=== PATIENT | female | born 1945 | race Caucasian/White ===

== ENCOUNTER 2016-11-08 05:20 | Inpatient (IN) | payer MEDICARE ==
[2016-11-06 09:58] LABS: HEMATOCRIT 47.3 % (36.0-48.0); HEMOGLOBIN 15.9 g/dL (12.0-16.0)
[2016-11-06 10:11] LABS: BUN (BLOOD UREA NITROGEN) 17 MG/DL (6-23); CHLORIDE, SERUM 101 MMOL/L (96-112); CREATININE 1.06 MG/DL (0.55-1.02); GFR AFRICAN AMERICAN 62 ML/MIN (>=60); GFR NON AFRICAN AMERICAN 53 ML/MIN (>=60); GLUCOSE, SERUM 157 MG/DL (60-99); POTASSIUM, SERUM 3.6 MMOL/L (3.5-5.3); SODIUM, SERUM 141 MMOL/L (135-148)
[2016-11-06 10:12] LABS: CALCIUM, SERUM 9.9 MG/DL (8.5-10.4); CO2 (CARBON DIOXIDE) 34 MMOL/L (24-34)
[~2016-11-08] VITALS: Ht 158.8 cm; Wt 81.9 kg
--- NOTE | ~2016-11-08 | PREOPHP ---
PreOp History and Physical [facility] [address] [place]. [address] NAME: RENEA STEVENSON : 47 STATUS : ADM IN PAT#: [id number] AGE: 71 ADM/REG DATE : 11/08/16 MR#: [id number] REPORT SERV DATE: 11/08/16 DICTATED BY: RAMIREZ FRAZIER DATE: 11/08/16 REPORT STATUS : Draft TRANSCRIBED BY: MODMariel DATE: 11/08/16 CHIEF COMPLAINT: Back pain, right hip and leg pain. HISTORY OF PRESENT ILLNESS: 71-year-old female, who has an x-ray evidence of a grade 1 spondylolisthesis at L4-5 and L5-S1. The patient has severe facet arthropathy, bilateral at L4-5 and L5-S1. MRI shows moderate spinal stenosis in the foraminal zone at L4-5 and L5-S1. We tried to treat this with conservative care and failed. The patient is now brought to surgery for a right-sided L4-5, L5-S1 hemilaminectomy, foraminotomy, and facetectomy with a transforaminal diskectomy and anterior interbody cage insertion, posterolateral interbody fusion with local bone graft and allograft, and posterior percutaneous Voyager instrumentation at L4-S1. Prior to surgery, risks, benefits, alternatives, and expectations were explained. Consent form has been signed. Please also note, because of the complexity of surgery, the need to identify correct level of surgery intraoperatively as well as desire to carry out the safest and most precise dissection, we feel intraoperative navigation will be mandatory. PAST MEDICAL HISTORY: Gastroesophageal reflux disease, hypercholesterolemia, depression, and hypertension. She also has osteoarthritis and porphyria. PAST SURGICAL HISTORY: Left total knee arthroplasty, left knee arthroscopy, cataract extraction, lens implants, appendectomy, colonoscopy, and hand surgery on the left. CURRENT MEDICATIONS: Atenolol, meloxicam, montelukast, Prilosec, red yeast, and spironolactone. ALLERGIES: ESTROGEN AND SULFA. SOCIAL HISTORY: She is retired. Former smoker, quit in 1967 with tobacco usage, does not use any alcohol. She is currently. FAMILY HISTORY: One son with a CVA and IN, hypertensive disorder. Mother had diabetes and at age 81. Mother also had rheumatoid arthritis. Her father had CVA and at age 84. He had an IN, diabetes mellitus, and hypertension. One brother with had a malignant cancer of unknown primary, at age 79. One daughter has COPD. REVIEW OF SYSTEMS: Otherwise negative. PHYSICAL EXAMINATION: VITAL SIGNS: 5 feet 3 inches, 160 pounds, and BMI of 28.3. GENERAL: She is alert, cooperative, well-oriented. Ambulates independently. HEENT: Grossly normal except her pupils have been altered prior to surgery. Extraocular muscles are intact. Oral exam is grossly normal. No thyromegaly is palpated. No carotid bruits are auscultated. LUNGS: Clear to auscultation. HEART: Rate is regular and rhythmic. PreOp History and Physical [address] [address] NAME: RENEA STEVENSON : 47 STATUS : ADM IN [facility]#: [id number] AGE: 71 ADM/REG DATE : 11/08/16 MR#: [id number] REPORT SERV DATE: 11/08/16 DICTATED BY: RAMIREZ FRAZIER DATE: 11/08/16 REPORT STATUS : Draft TRANSCRIBED BY: BLADE DATE: 11/08/16 ABDOMEN: Soft with good bowel sounds. No peritoneal signs are noted. MUSCULOSKELETAL: The spine itself has some mild flattening of the lumbar lordosis. There is limited range of motion, but she still can flex to 50 to 60 degrees, extends to 10 to 15 degrees. She has no abnormal pain behaviors. Jumana signs are negative. Fabere signs are negative. No pelvic obliquity or leg length discrepancies are noted. She has negative straight leg raising sign. Negative femoral nerve stretch test. Patella and Achilles reflexes are absent. Bilateral toes are downgoing. No ankle clonus found. There is no sensory deficit in either lower extremity. Orthopedically, she has no pain with moving the hips, knees, or ankles. There are pulses in all four extremities. No abnormal skin lesions found. ASSESSMENT AND RECOMMENDATIONS: As listed above. /BLADE Ramirez Frazier D.O. / [id number] CC: Pavel Ling
--- NOTE | ~2016-11-08 | OP ---
Record Of Operation [facility] [address] [place]. [address] NAME: RENEA STEVENSON : 47 STATUS : ADM IN PAT#: [id number] AGE: 71 ADM/REG DATE : 11/08/16 MR#: [id number] REPORT SERV DATE: 11/08/16 DICTATED BY: RAMIREZ FRAZIER DATE: 11/08/16 REPORT STATUS : Draft TRANSCRIBED BY: BLADE DATE: 11/08/16 DATE OF PROCEDURE: PREOPERATIVE DIAGNOSIS: Grade 1 spondylolisthesis and spinal stenosis at L4-5 and L5-S1. POSTOPERATIVE DIAGNOSIS: Grade 1 spondylolisthesis and spinal stenosis at L4-5 and L5-S1. PROCEDURE: 1. Microscopic and navigation-assisted surgery. 2. Right L4-5 and L5-S1 hemilaminectomy, foraminotomy, facetectomy, transforaminal diskectomy, anterior interbody cage insertion, posterolateral interbody fusion with local bone graft and allograft, and posterior percutaneous Voyager instrumentation at L4-S1. [address] [address] SERVICE: Adiel Lacy. ANESTHESIA: General. BLOOD LOSS: 125 mL. INDICATION FOR SURGERY: Indications for surgery and risks have been explained. They are listed in last office note as well as the history and physical. See that for detail. DESCRIPTION OF PROCEDURE: Antibiotic prophylaxis was given. Neurophysiology monitoring leads were inserted. The patient was brought to the operative suite. General anesthetic including endotracheal intubation was administered. Ulrich catheter was placed with sterile technique. The patient was placed prone on a Faisal spine frame. Bony prominences were carefully padded. Thoracolumbar spine scrubbed with Hibiclens solution. DuraPrep was painted. Sterile drapes applied. A small stab wound was carried out over the left posterior-superior iliac spine. A percutaneous pin with navigational frame attached was inserted in the PSIS. Intraoperative CT scan with O-arm obtained, CT information was used to register the navigational system. With navigational assistance, I identified initially the L4-5 and L5-S1 on the right. Just lateral to the facet joints, approximately a 5-6 cm skin incision was carried out. Initially, I used the inferior portion of the skin incision. I placed a blunt navigated probe through the fascia and muscle and docked over the facet joint of L5-S1. Muscle dilators were inserted followed by placement of a tubular retractor attached to an arm mount on the table. The microscope was sterilely draped and used throughout the remainder of the procedure. With navigational assistance, again I identified the top of the pedicle of S1 and the inferior pedicle of L5. I used a combination of a cutting bur, 2 and 3 mm juan bur as well as 2 and 3 mm Kerrison rongeurs. I removed the entire superior articular process of S1 down to the top of the pedicle. I removed the inferior articular process of L5, the lamina Record Of Operation [facility] [address] [place]. [address] NAME: RENEA STEVENSON : 47 STATUS : ADM IN PAT#: [id number] AGE: 71 ADM/REG DATE : 11/08/16 MR#: [id number] REPORT SERV DATE: 11/08/16 DICTATED BY: RAMIREZ FRAZIER DATE: 11/08/16 REPORT STATUS : Draft TRANSCRIBED BY: BLADE DATE: 11/08/16 of L5, and the pars interarticularis of L5. Local bone graft was morcellized and used as part of the fusion grafting material. The ligamentum flavum hypertrophy was removed. There was a marked facet hypertrophy causing foraminal stenosis. There was also a large disk osteophyte complex throughout the entire foramen causing impingement on the exiting L5 nerve root. A transforaminal diskectomy was carried out with curettes, rongeurs, and disk tammy. The wounds were irrigated. Intradiscal trial was carried out. The interbody space was packed with the grafting material, which included local bone graft as well as allograft and extra-small dosage of bone protein. The cage was inserted through the transforaminal approach into the midline against the anterior longitudinal ligament. Some additional posterolateral interbody grafting was carried out. The retractor was removed. I then moved to the cephalad portion of the skin incision and I placed a blunt navigated probe through the fascia and muscle and docked over the facet joint of the L4-5. I repeated the same identical procedure with right L4-5 hemilaminectomy, foraminotomy, facetectomy, transforaminal diskectomy, anterior interbody cage insertion, and posterior-lateral interbody fusion. Once this was completed, the retractor was removed. On the left side, I carried out a 5 cm skin incision to match that on the right just lateral to the facet joint. A percutaneous Voyager and pedicle tap and screw curb setter were used to tap the pedicles of L4-5 and S1 bilateral. Polyaxial Voyager screws were inserted at L4-5 and S1 bilateral. A contoured lordotic 65 mm Voyager cassia was then placed through the top portion of the screw extenders and reduced into the tulip of the pedicle screw. The set screws were inserted and tightened with a torque wrench providing rigid stability. The screw extenders were removed. Intraoperative CT scan with O-arm repeated CT information showed excellent position of all implants, good buddhist of disk height and lordosis. The fascial openings were closed with interrupted #1 Vicryl suture, subcutaneous tissue was closed with 2-0 Vicryl sutures, and 2-0 vertical mattress nylon sutures were used for skin closure. Sterile dressings were applied. The patient was awakened, extubated, and taken to recovery room in satisfactory condition having tolerated the procedure well. Sponge, needle, and instrument counts were correct. No intraoperative complications noted. /BLADE Ramirez Frazier D.O. / [id number] CC: Ramirez Frazier D.O.
[~2016-11-08 05:20] MED LIST: AREDS 2 PO; ARNUITY ELLIP100 MCG INH; ATEN25 PO; C5 PO; DEMA20 PO; KLONO1 PO; LEXAPRO10 PO; MICRO-K10 MEQ PO; NEUR100 PO; PCET PO; PRILO PO; PROAIR HFA INH; RED YEAS1 PO; SINGULAIR1 PO; SPIRO25 PO; VITAMIN D31000 UNIT PO
[2016-11-08 14:12] LABS: HEMATOCRIT 43.5 % (36.0-48.0); HEMOGLOBIN 14.6 g/dL (12.0-16.0); MANUAL DIFF YES %; MEAN CORPUS HGB CONC 33.6 g/dL (32.0-36.0); MEAN CORPUSCULAR HEMOGLOB 31.4 pg (26.0-34.0); MEAN CORPUSCULAR VOLUME 93.5 fL (80-100); MEAN PLATELET VOLUME 11.7 fL (9.2-13.0); PLATELET COUNT 166 10/3/uL (150-400); RBC DISTRIBUTION WIDTH 12.9 % (12.0-16.0); RED CELL COUNT 4.65 10/6/uL (4.0-5.6); WHITE BLOOD CELLS 12.9 10/3/uL (4.5-10.5)
[2016-11-08 14:25] LABS: BUN (BLOOD UREA NITROGEN) 17 MG/DL (6-23); CHLORIDE, SERUM 105 MMOL/L (96-112); CO2 (CARBON DIOXIDE) 32 MMOL/L (24-34); GFR AFRICAN AMERICAN 59 ML/MIN (>=60); GFR NON AFRICAN AMERICAN 51 ML/MIN (>=60); GLUCOSE, SERUM 187 MG/DL (60-99); POTASSIUM, SERUM 3.3 MMOL/L (3.5-5.3); SODIUM, SERUM 143 MMOL/L (135-148)
[2016-11-08 14:28] LABS: BE (BASE EXCESS) 1.8 MEQ/L (0 +/- 2.5); CARBOXYHEMOGLOBIN 0.4 % (0-3); HCO3 (ACTUAL BICARBONATE) 29.7 MEQ/L (23-27); HEMOBLOGIN CONTENT 15.5 G/DL (12-16); INSTRUMENT SERIAL # 11843; METHEMOGLOBIN 0.6 % (0-3); O2 CONTENT 21.1 VOL% (18-24); PCO2 (CO2 TENSION) 60 MMHG (35-45); PO2 (O2 TENSION) 112 MMHG (79-93); SAMPLE Arterial; pH 7.32 (7.37-7.43)
[2016-11-08 14:33] LABS: BAND NEUTROPHILS 6 %; EOSINOPHILS 2 %; EOSINOPHILS ABSOLUTE (CALC) 0.26 10/3/uL (0.0-0.53); IMMATURE GRANS ABSOLUTE (CALC) 0.13 10/3/uL (0.0-0.11); LYMPHOCYTES 31 %; METAMYELOCYTES 1 %; NEUTROPHILS ABSOLUTE (CALC) 8.51 10/3/uL (2.02-8.40); PLATELET ESTIMATE ADQ (ADEQUATE); RBC MORPHOLOGY NORM (NORMAL); SEGMENTED NEUTROPHIL (0) 60 %; TOTAL NUCLEATED CELLS 100
[2016-11-09 06:32] LABS: BASOPHILS 0.1 %; BASOPHILS ABSOLUTE 0.01 10/3/uL (0.0-0.16); EOSINOPHILS 0 %; IMMATURE GRANULOCYTES 0.1 %; IMMATURE GRANULOCYTES ABSOLUTE 0.02 10/3/uL (0.0-0.11); LYMPHOCYTES 12.1 %; LYMPHOCYTES ABSOLUTE 1.67 10/3/uL (0.67-4.30); MEAN CORPUS HGB CONC 33.5 g/dL (32.0-36.0); MEAN CORPUSCULAR HEMOGLOB 31.6 pg (26.0-34.0); MEAN CORPUSCULAR VOLUME 94.4 fL (80-100); MEAN PLATELET VOLUME 11.5 fL (9.2-13.0); MONOCYTES 11.2 %; MONOCYTES ABSOLUTE 1.54 10/3/uL (0.21-1.20); NEUTROPHILS 76.5 %; NEUTROPHILS ABSOLUTE 10.54 10/3/uL (2.02-8.40); PLATELET COUNT 145 10/3/uL (150-400); RBC DISTRIBUTION WIDTH 12.8 % (12.0-16.0); RED CELL COUNT 4.11 10/6/uL (4.0-5.6); WHITE BLOOD CELLS 13.8 10/3/uL (4.5-10.5)
[2016-11-09 06:33] LABS: HEMATOCRIT 38.8 % (36.0-48.0); MANUAL DIFF NO %
[2016-11-09 06:45] LABS: BUN (BLOOD UREA NITROGEN) 15 MG/DL (6-23); CALCIUM, SERUM 8.4 MG/DL (8.5-10.4); CHLORIDE, SERUM 106 MMOL/L (96-112); CO2 (CARBON DIOXIDE) 29 MMOL/L (24-34); CREATININE 1.02 MG/DL (0.55-1.02); GFR AFRICAN AMERICAN 65 ML/MIN (>=60); GFR NON AFRICAN AMERICAN 56 ML/MIN (>=60); GLUCOSE, SERUM 185 MG/DL (60-99); SODIUM, SERUM 143 MMOL/L (135-148)
[2016-11-09 06:46] LABS: POTASSIUM, SERUM 4.5 MMOL/L (3.5-5.3)
[2016-11-12] MEDS ORDERED: DIL4TAB PO (09:49)
[2016-11-12] MEDS ORDERED: METHOC500B PO (09:50)
[2016-11-12] MEDS ORDERED: NEUR100 PO (09:50)
== END 2016-11-12 11:08 | disposition home or self-care (01) | DRG 460 ==
LOC: ENRESERVDT → ENRESERV → ENRESERVTM → SDC/OF 05:20 → 3SO 05:20 → PACU 13:17 → 3SO 16:56
PROVIDERS: Orthopaedic Surgery Orthopaedic Surgery of the Spine
PROC: 0SG00AJ Fusion of Lumbar Vertebral Joint with Interbody Fusion Device, Posterior Approach, Anterior Column, Open Approach (ICD-10-PCS; principal; 2016-11-08 08:45)
PROC: 0SG30AJ Fusion of Lumbosacral Joint with Interbody Fusion Device, Posterior Approach, Anterior Column, Open Approach (ICD-10-PCS; 2016-11-08 08:45)
PROC: 4A11X4G Monitoring of Peripheral Nervous Electrical Activity, Intraoperative, External Approach (ICD-10-PCS; 2016-11-08 08:45)
DX: M51.36 Other intervertebral disc degeneration, lumbar region (principal); I10 Essential (primary) hypertension; M43.16 Spondylolisthesis, lumbar region; M43.17 Spondylolisthesis, lumbosacral region; M48.06 Spinal stenosis, lumbar region; M48.07 Spinal stenosis, lumbosacral region; K21.9 Gastro-esophageal reflux disease without esophagitis; F32.9 Major depressive disorder, single episode, unspecified; G47.33 Obstructive sleep apnea (adult) (pediatric); J45.909 Unspecified asthma, uncomplicated; R73.03 Prediabetes; Z96.652 Presence of left artificial knee joint; Z88.2 Allergy status to sulfonamides; Z88.8 Allergy status to other drugs, medicaments and biological substances; Z87.891 Personal history of nicotine dependence
CPT/HCPCS: 36415; 72100; 80048; 82805; 82962; 85014; 85018; 85025; 86850; 86900; 86901; 87641; 88304; 88311; 93005; 94640; 94660; 97110-GP; 97116-GP; 97161-GP; 97530-GP; A9270-GY; C1713; G8978-CK-GP; G8979-CI-GP; J0690; J1644; J2250; J2270; J2405; J2710; J3010